=== PATIENT | female | born 1995 | race Caucasian/White ===

== ENCOUNTER → 2017-08-01 | Outpatient (CLI) | payer OTHER ==
[2017-04-04 12:11] VITALS: BMI 24.9
[~2017-08-01] MED LIST: ALBU8.5H IH; ALPR-429 PO; BECL8.7A2 IH; CEP500 PO; CIPR-344 PO; DIA5 PO; IBUP-56 PO; IBUP600T22 PO; KETO30VI PO; LOR5/325 PO; METR-1 PO; MULT-1379 PO; NO ROUTINE MEDS; NORG1TAB6 PO; ONDA4TAB PO; ONDA8TAB94 PO; OXYC-854 PO; OXYC-865 PO; PER PO; PROM-110 PO; SERT20OR6 PO
--- NOTE | 2017-08-01 14:38 | RADIOLOGY IMAGING REPORT ---
FACILITY: [facility] [place] PATIENT NAME: Santa Hidalgo : 1995 MR: [id number] V: [id number] EXAM DATE: ORDERING PHYSICIAN: CAMERON JIN TECHNOLOGIST: Location: [facility] Patient: Santa Hidalgo : 1995 Visit/Account:[id number] Date of Sevice: 08/01/2017 EXAMINATION: Right upper quadrant abdominal ultrasound HISTORY: Right upper quadrant pain. COMPARISON: CT abdomen/pelvis 04/03/2017. FINDINGS: Liver: Normal hepatic echotexture. No focal liver lesions identified. Antegrade flow is visualized in the main portal vein. Gallbladder: Normal sonographic appearance of the gallbladder, without evidence of stones or sludge. No gallbladder wall thickening or pericholecystic fluid. Negative sonographic Christopher sign. Bile Ducts: No biliary ductal dilatation. The common duct measures 3 mm. Pancreas: The head and body of the pancreas are moderately well visualized and unremarkable where se en. Right kidney: Normal echogenicity of the right kidney. The renal cortical parenchyma is maintained. N o hydronephrosis. The right kidney measures 10.7 cm in length. Aorta: Patent and normal in caliber. IVC: Patent. Ascites: None. IMPRESSION: Unremarkable right upper quadrant abdominal ultrasound. Report Dictated By: Prosper Lewis MD at 08/01/2017 2:32 PM Report E-Signed By: Prosper Lewis MD at 08/01/2017 2:33 PM WSN:[id number]
== END ==
LOC: US 10:36
PROVIDERS: ATTEND Surgery
DX: R10.11 Right upper quadrant pain (principal)
CPT/HCPCS: 76705

== ENCOUNTER → 2017-08-04 | Outpatient (CLI) | payer OTHER ==
[2017-04-04 12:11] VITALS: BMI 24.9
[~2017-08-04] MED LIST changes: +OMEP-218 PO
--- NOTE | 2017-08-04 11:44 | RADIOLOGY IMAGING REPORT ---
FACILITY: [facility] - [place] PATIENT NAME: Santa Hidaglo : 1995 MR: [id number] V: [id number] EXAM DATE: ORDERING PHYSICIAN: CAMERON JIN TECHNOLOGIST: Location: [facility] [place] Patient: Santa Hidalgo : 1995 Visit/Account:[id number] Date of Sevice: 08/04/2017 GALLBLADDER ultrasound W KINEVAC HISTORY: Right upper quadrant pain COMPARISON: None. FINDINGS: Pulmonary views of the gallbladder demonstrate no evidence of gallbladder stones, sludge, gallbladder wall thickening or pericholecystic fluid. The gallbladder volume prior to Kinevac injection was 24. 6 mL. Following CCK injection the maximum gallbladder contraction was obtained at 15 minutes at ic h time the gallbladder volume was 5 mL. This equates to a gallbladder ejection fraction of 80%. IMPRESSION: Gallbladder ejection fraction 80% Report Dictated By: Malia Pierson MD at 08/04/2017 11:35 AM Report E-Signed By: Malia Pierson MD at 08/04/2017 11:39 AM WSN:[email or web address]
== END ==
LOC: US 02:37
PROVIDERS: ATTEND Surgery
DX: R10.11 Right upper quadrant pain (principal)
CPT/HCPCS: 76705; J2805

== ENCOUNTER 2017-08-09 02:20 | Day surgery (SDC) | payer OTHER ==
[2017-04-04 12:11] VITALS: Ht 170.2 cm; Wt 62.1 kg
--- NOTE | 2017-08-05 15:57 | HISTORY AND PHYSICAL ---
DATE OF ADMISSION: August 08, 2017 CHIEF COMPLAINT Right upper quadrant pain. HISTORY OF PRESENT ILLNESS This is a 22-year-old female with a six-week history of intermittent right upper quadrant and epigastric pain. This pain radiates to the back. This pain is made worse by eating. It has been increasing in intensity and frequency. She has tried Prilosec and Zantac without relief. She had an ultrasound of the gallbladder which was negative. She had an ultrasound with stimulation which revealed normal contractility; however, this reproduced her pain and was quite severe. She denies any urinary complaints. She has had no change in her bowel habits. ALLERGIES She has no known allergies. CURRENT MEDICATIONS 1. Multivitamin. 2. Prilosec. 3. Zantac. PAST MEDICAL HISTORY AND OPERATIONS 1. She had a knee operation. 2. A little finger operation. 3. A shoulder operation. 4. [place] teeth. REVIEW OF SYSTEMS No cardiac, pulmonary, liver or kidney disease, diabetes, hypertension, or a history of deep vein thrombosis. PHYSICAL EXAMINATION GENERAL: A 22-year-old female in no acute distress. LUNGS: Clear. HEART: Regular rhythm. ABDOMEN: Soft. She has some tenderness in the right subcostal region. IMPRESSION Cholecystitis. PLAN Laparoscopic cholecystectomy with intraoperative cholangiogram. We discussed the procedure, complications, recovery time, and the possibility this may not relieve her pain. She seemed to understand and wished to proceed. JESUS
[2017-08-09] VITALS (10 sets, daily range): BP systolic 88–122; BP diastolic 31–85
[~2017-08-09] VITALS: Ht 170.2 cm; Wt 62.1 kg
[~2017-08-09 02:20] MED LIST changes: +IOPAMIDOL 61% 75 ML INFUS BTL 75 ML ONE; +LIDOCAINE MPF 1% 5 ML VIAL ONE; +LIDOCAINE/SOD BICARB 8.4% SYR ID ONE; +MIDAZOLAM 2 MG/2 ML VIAL IVP PRN; +NORMOSOL R SOLN(*) 1000 ML BAG 1,000 ML IV PRN; +PROPOFOL EMUL(*) 10MG/ML 20 ML 0 ML ONE; +ROPIVACAINE 0.2% 20 ML VIAL ONE; +cefOXitin/DEX(*) 2GM/50ML PREM 50 ML IVPB ONE; +fentaNYL CITR 250 MCG/5 ML AMP ONE
[2017-08-09] MEDS ORDERED: ROPIVACAINE 0.2% 20 ML VIAL ONE (06:53)
[2017-08-09] MEDS ORDERED: KET10 PO (07:57)
[2017-08-09] MEDS ORDERED: HYDR-4309 PO (07:57)
--- NOTE | 2017-08-09 07:57 | Post Operative Progress Note ---
Post Operative Progress Note Date: Aug 09, 2017 Time: 12:45 Surgeon: ivana Anesthesia: dr alcala Pre-Op Diagnosis: cholecystitis Post-Op Diagnosis: same Procedure(s): lap chan with CAMERON Buitrago MD Aug 09, 2017 07:56
--- NOTE | 2017-08-09 07:59 | Short(Outpt) Discharge Summary ---
Discharge Summary Reason for Hosp/Final Diag: (1) Cholecystitis Hospital Course & Plan: lap chan with gram Departure Discharge to: Home Discharge Instructions Home Meds Active Scripts Hydrocodone Bit/Acetaminophen (NORCO 5-325 TABLET) 1 Each Tablet, 1 EACH PO Q4H Y for PAIN, #30 TAB Prov:CAMERON JIN MD 08/09/17 Ketorolac Tromethamine (KETOROLAC TROMETHAMINE) 10 Mg Tab, 10 MG PO Q6H, #20 TAB Prov:CAMERON JIN MD 08/09/17 Oxycodone Hcl/Acet 5/325 Mg (ENDOCET 5-325 TABLET) 1 Each Tablet, 1-2 TAB PO Q4H Y for PAIN, #40 TAB 0 Refills Prov:JUSTIN CANNON MD 04/13/17 Diazepam (VALIUM) 5 Mg Tablet, 5 MG PO TID Y for ANXIETY for 5 Days, #20 TAB 0 Refills Prov:JUSTIN CANNON MD 04/13/17 Reported Medications Omeprazole Magnesium (PRILOSEC OTC) 20 Mg Tablet.dr, 1 TAB PO QDAY, TAB 08/05/17 Ondansetron (ZOFRAN ODT) 4 Mg Tab.rapdis, 4 MG PO Q6H Y for NAUSEA, #12 TAB.MAYA 04/06/17 Multivits,-,Other Min (THERA-M) 1 Each Tablet, 1 EACH PO QDAY 11/07/15 Ibuprofen (IBUPROFEN) 200 Mg Tablet, 4 TAB PO Q8H 04/01/15 Discontinued Scripts Ketorolac Tromethamine 30 Mg/Ml (KETOROLAC TROMETHAMINE) 30 Mg/1 Ml Vial, 10 MG PO 0400,1000,1600,2200 for 2 Days, #8 TAB 0 Refills Prov:CAMERON JIN MD 04/06/17 Diet: Regular Activity: As Tolerated Special Instructions: ice to incisions for 48 hours remove bandage and shower to see me in one week, call [phone] for apt CAMERON JIN MD Aug 09, 2017 07:59
[2017-08-09 11:21] LABS: PLATELET COUNT, AUTOMATED 463 K/uL (150-450)
[2017-08-09] MEDS ORDERED: SCOPOLAMINE 1.5 MG PATCH TD ONE (11:50)
[2017-08-09] MEDS ORDERED: fentaNYL CITR 250 MCG/5 ML AMP ONE (11:51)
[2017-08-09] MEDS ORDERED: PROPOFOL EMUL(*) 10MG/ML 20 ML 20 ML ONE (11:53)
[2017-08-09] MEDS ORDERED: LIDOCAINE MPF 1% 5 ML VIAL ONE (11:53)
[2017-08-09] MEDS ORDERED: MIDAZOLAM 2 MG/2 ML VIAL IVP PRN (11:55)
[2017-08-09] MEDS ORDERED: cefOXitin/DEX(*) 2GM/50ML PREM 50 ML IVPB ONE (11:55)
[2017-08-09] MEDS ORDERED: NORMOSOL R SOLN(*) 1000 ML BAG 1,000 ML IV PRN (11:55)
[2017-08-09] MEDS ORDERED: LIDOCAINE/SOD BICARB 8.4% SYR ID ONE (11:55)
[2017-08-09] MEDS ORDERED: ROCURONIUM BROM 10 MG/ML 5 ML ONE (12:00)
[2017-08-09] MEDS ORDERED: DEXAMETHASONE SOD 4 MG/ML VIAL ONE (12:02)
[2017-08-09] MEDS ORDERED: KETOROLAC 30 MG/ML VIAL ONE (12:02)
[2017-08-09] MEDS ORDERED: ONDANSETRON 4 MG/2 ML VIAL ONE ×2 (12:02→13:37)
[2017-08-09] MEDS ORDERED: SUGAMMADEX SOD 200 MG/2 ML SDV ONE (12:24)
[2017-08-09] MEDS ORDERED: fentaNYL CITR 100 MCG/2 ML AMP ONE ×2 (12:58→13:35)
[2017-08-09] MEDS ORDERED: PROMETHAZINE 25 MG/ML 1 ML AMP ONE ×2 (12:59→13:21)
[2017-08-09] MEDS ORDERED: MEPERIDINE 50 MG/ML SYR ONE (13:08)
--- NOTE | 2017-08-09 13:35 | RADIOLOGY IMAGING REPORT ---
FACILITY: [facility] PATIENT NAME: Santa Hidalgo : 1995 MR: [id number] V: [id number] EXAM DATE: ORDERING PHYSICIAN: CAMERON JIN TECHNOLOGIST: Location: [facility] Patient: Santa Hidalgo : 1995 Visit/Account:[id number] Date of Sevice: 08/09/2017 Exam type: CHOLANGIOGRAM OPERATIVE History: CHOLECYSTITIS Comparison: None. Findings: Contrast is seen in the right left hepatic ducts, common hepatic duct common bile duct free flow of c ontrast into the duodenum. Contrast also noted in the pancreatic duct. No intraluminal filling defe cts identified in the visualized portion the biliary tree. The cumulative continuous possibly dose o f 0.68658 mGray per meter squared. The total fluoroscopy time was 16.7 seconds IMPRESSION: 1. As above Report Dictated By: Malia Pierson MD at 08/09/2017 1:28 PM Report E-Signed By: Malia Pierson MD at 08/09/2017 1:31 PM WSN:[email or web address]
--- NOTE | 2017-08-10 08:32 | OPERATIVE REPORT 1 ---
EVENT DATE: August 09, 2017 SURGEON: Tremayne Stallings MD ANESTHESIOLOGIST: Fede Duong MD ANESTHESIA: General. PREOPERATIVE DIAGNOSIS Cholecystitis. POSTOPERATIVE DIAGNOSIS Cholecystitis. PROCEDURE PERFORMED Laparoscopic cholecystectomy with intraoperative cholangiogram. DESCRIPTION OF PROCEDURE Patient was placed in the supine position and given general anesthetic. Her abdomen was prepped and draped in sterile fashion. Skin was anesthetized with 0.2% ropivacaine. Small incision was made above the umbilicus. Veress needle was inserted. The abdomen was insufflated with CO2. We placed a 5 mm port under direct vision. We then placed two 5 mm in the right subcostal region, a 10 mm in the epigastrium under direct vision. Gallbladder was grasped, raised cephalad. We dissected out the cystic duct, gallbladder junction, placed a clip there, opened the cystic duct, inserted Taut catheter, obtained cholangiograms, which were normal. Clip was removed. Taut catheter was removed. Cystic duct was triply clipped proximally and transected. Cystic artery was dissected out, doubly clipped proximally, once distally and transected. We then used electrocautery to dissect the gallbladder from the bed of the liver. This dissection went very nicely. We had excellent hemostasis. Gallbladder was placed in an Endopouch, removed from the field. We suction irrigated, inspected for bleeding. We had perfect hemostasis. Ports were removed under direct vision. No bleeding was noted. Skin was closed with interrupted 4-0 Maxon. Steri-Strips and Airstrip were placed. Patient tolerated procedure well, no apparent complications. [facility]
== END 2017-08-09 14:15 | disposition home or self-care (01) ==
LOC: OR 02:20
PROVIDERS: ATTEND Surgery
DX: K81.9 Cholecystitis, unspecified (principal)
CPT/HCPCS: 36415; 47563; 74300; 84703; 85025; 88304; J0694; J1100; J1885; J2001; J2175; J2250; J2405; J2550; J2704; J2795; J3010; Q9967

== ENCOUNTER → 2017-12-30 | Outpatient (CLI) | payer OTHER ==
[2017-04-04 12:11] VITALS: BMI 24.9
[~2017-12-30] MED LIST changes: +CETI-176 PO; +DICY10CA11 PO; +DIPH-740 PO; +HYDR-4309 PO; -IOPAMIDOL 61% 75 ML INFUS BTL 75 ML ONE; +KET10 PO; -LIDOCAINE MPF 1% 5 ML VIAL ONE; -LIDOCAINE/SOD BICARB 8.4% SYR ID ONE; -MIDAZOLAM 2 MG/2 ML VIAL IVP PRN; -NORMOSOL R SOLN(*) 1000 ML BAG 1,000 ML IV PRN; -PROPOFOL EMUL(*) 10MG/ML 20 ML 0 ML ONE; -ROPIVACAINE 0.2% 20 ML VIAL ONE; +SERT-173 PO; -SERT20OR6 PO; -cefOXitin/DEX(*) 2GM/50ML PREM 50 ML IVPB ONE; -fentaNYL CITR 250 MCG/5 ML AMP ONE
[2017-12-30 14:14] LABS: PLATELET COUNT, AUTOMATED 333 K/uL (150-450)
== END ==
LOC: LAB 13:47
PROVIDERS: ATTEND Surgery
DX: R11.0 Nausea (principal); R19.7 Diarrhea, unspecified; R10.10 Upper abdominal pain, unspecified; Z90.49 Acquired absence of other specified parts of digestive tract
CPT/HCPCS: 36415; 82040; 82247; 82248; 82310; 82374; 82435; 82565; 82947; 83690; 84075; 84132; 84155; 84295; 84450; 84460; 84520; 85025; 86140